=== PATIENT | male | born 1990 | race Hispanic/Latino ===

== ENCOUNTER 2020-06-28 14:48 | Emergency (ER) | payer SELFPAY ==
[2020-06-28 15:28] LABS: Absolute Lymphocytes (CBC) 1.4 K/uL (0.7-4.9); Hematocrit 48.5 % (39.6-49.0); Lymphocytes % 21.9 % (15.3-44.8); RBC Red Blood Cell Count 5.83 M/uL (4.33-5.43)
[2020-06-28 15:44] LABS: Protime INR 1.03
[2020-06-28 15:48] LABS: ALT/SGPT 68 U/L (12-78); AST/SGOT 27 U/L (15-37); Albumin 4.6 g/dL (3.4-5.0); Alkaline Phosphatase 59 U/L (45-117); BUN Blood Urea Nitrogen 11 mg/dL (7-18); Bicarbonate 26 mmol/L (21-32); Bilirubin Direct 0.2 mg/dL (0-0.2); Bilirubin Total 1.2 mg/dL (0.2-1.0); Glucose Level 100 mg/dL (74-106); Magnesium 2.5 mg/dL (1.8-2.4); NT PRO-BNP 27 pg/mL (<125); Potassium 3.7 mmol/L (3.5-5.1); Protein, Total 8.2 g/dL (6.4-8.2); Sodium Level 140 mmol/L (136-145); Troponin (Emerg Dept Use Only) < 0.02 ng/mL (0.0-0.045)
--- NOTE | 2020-06-28 16:23 | EDPHYS ---
Physician Documentation [facility] Name: Vasu Carrillo Age: 29 yrs Sex: Male : 1990 Arrival Date: 06/28/2020 Time: 14:50 Bed 16 Private MD: ED Physician Dino Mejia HPI: 06/28 15:09 This 29 yrs old Male presents to ER via Ambulatory with complaints of Chest jmm Pain. 15:09 The patient or guardian reports chest pain that is located primarily in the anterior [facility] chest wall, midsternal. The pain does not radiate. Associated signs and symptoms: Pertinent negatives: abdominal pain. The chest pain is described as aching. Duration: The patient or guardian reports multiple episodes. Modifying factors: The symptoms are alleviated by nothing. the symptoms are aggravated by nothing. The patient has not experienced similar symptoms in the past. Historical: - Allergies: 14:59 Latex, Natural Rubber; jl7 - Home Meds: 14:59 None [Active]; jl7 - PMHx: 14:59 None; jl7 - PSHx: 14:59 Knee surgery; jl7 - Immunization history:: Adult Immunizations not up to date. - Social history:: Smoking status: Patient denies any tobacco usage or history of. ROS: 15:09 Constitutional: Negative for fever, chills, and weight loss. jmm 15:09 Respiratory: Negative for shortness of breath, cough, wheezing, and pleuritic chest pain, Neuro: Negative for headache, weakness, numbness, tingling, and seizure. 15:09 Cardiovascular: Positive for chest pain. 15:09 All other systems are negative. Exam: 15:07 ECG was reviewed by the Attending Physician. jmm 15:09 Constitutional: This is a well developed, well nourished patient who is awake, alert, jmm and in no acute distress. Head/Face: atraumatic. Eyes: EOMI, no conjunctival erythema appreciated ENT: Moist Mucus Membranes Neck: Trachea midline, Supple Chest/axilla: Normal chest wall appearance and motion. Cardiovascular: Regular rate and rhythm. No edema appreciated Respiratory: Normal respirations, no respiratory distress appreciated Abdomen/GI: Non distended, soft Back: Normal ROM Skin: General appearance color normal MS/ Extremity: Moves all extremities, no obvious deformities appreciated, no edema noted to the lower extremities Neuro: Awake and alert, normal gait Psych: Behavior is normal, Mood is normal, Patient is cooperative and pleasant Vital Signs: 14:57 BP 165 / 105; Pulse 101; Resp 17; Temp 98.2; Pulse Ox 99% ; Weight 104.33 kg; Height 5 7 ft. 6 in. (167.64 cm); Pain 4/10; 15:23 BP 152 / 98; Pulse 102; Resp 21; Pulse Ox 99% ; Pain 4/10; rb3 16:23 BP 144 / 97; Pulse 93; Resp 21; Pulse Ox 99% ; rb3 17:03 BP 137 / 95; Pulse 92; Resp 22; Pulse Ox 98% ; rb3 14:57 Body Mass Index 37.12 (104.33 kg, 167.64 cm) 7 MDM: 14:56 Patient medically screened. [facility] 16:22 Data reviewed: vital signs, nurses notes. Counseling: I had a detailed discussion with carmina the patient and/or guardian regarding: the historical points, exam findings, and any diagnostic results supporting the discharge/admit diagnosis, lab results, radiology results, the need for outpatient follow up, to return to the emergency department if symptoms worsen or persist or if there are any questions or concerns that arise at home. ED course: HEART SCORE = 1. D-DIMER NEGATIVE. 06/28 15:07 Order name: Basic Metabolic Panel; Complete Time: 15:50 [facility] 06/28 15:07 Order name: CBC with Diff; Complete Time: 15:41 [facility] 06/28 15:07 Order name: LFT's; Complete Time: 15:50 [facility] 06/28 15:07 Order name: Magnesium; Complete Time: 15:50 [facility] 06/28 15:07 Order name: NT PRO-BNP; Complete Time: 15:50 [facility] 06/28 15:07 Order name: PT-INR; Complete Time: 15:50 [facility] 06/28 15:07 Order name: Troponin (emerg Dept Use Only); Complete Time: 15:50 [facility] 06/28 15:07 Order name: XRAY Chest (1 view); Complete Time: 16:42 [facility] 06/28 15:07 Order name: EKG; Complete Time: 15:08 [facility] 06/28 15:07 Order name: Cardiac monitoring; Complete Time: 15:18 [facility] 06/28 15:07 Order name: EKG - Nurse/Tech; Complete Time: 15:18 [facility] 06/28 15:07 Order name: IV Saline Lock; Complete Time: : [facility] 06/28 15:07 Order name: Labs collected and sent; Complete Time: 15: [facility] 06/28 15:07 Order name: D-Dimer; Complete Time: 15:50 [facility] 06/28 15:07 Order name: O2 Per Protocol; Complete Time: : [facility] 06/28 15:07 Order name: O2 Sat Monitoring; Complete Time: 15:18 jm EC: Rate is 106 beats/min. Rhythm is regular. QRS [place] is Normal. NH interval is normal. [facility] QRS interval is normal. QT interval is normal. No Q waves. T waves are Normal. No ST changes noted. Reviewed by me. Administered Medications: No medications were administered Disposition: 17:41 Co-signature as Attending Physician, Dino Mejia MD. rn Disposition: 06/28/20 16:23 Discharged to Home. Impression: Chest pain, unspecified. - Condition is Stable. - Discharge Instructions: Nonspecific Chest Pain. - Prescriptions for orphenadrine citrate 100 mg Oral Tablet Sustained Release - take 1 tablet by ORAL route 2 times per day As needed; 20 tablet. Medrol (Sergio) 4 mg Oral Tablets, Dose Pack - take 1 tablet by ORAL route as directed - follow package instructions; 1 packet. - Medication Reconciliation Form, Thank You Letter, Antibiotic Education, Prescription Opioid Use form. - Follow up: Private Physician; When: 2 - 3 days; Reason: Recheck today's complaints, Continuance of care, Re-evaluation by your physician. Signatures: Dispatcher [employer] EDMS Sarath Garcia PA PA Dino Schafer MD MD rn Leal, Jahala, RN RN jl7 Marissa Bacon, RN RN rb3 Corrections: (The following items were deleted from the chart) 17:05 16:23 06/28/2020 16:23 Discharged to Home. Impression: Chest pain, unspecified. rb3 Condition is Stable. Forms are Medication Reconciliation Form, Thank You Letter, Antibiotic Education, Prescription Opioid Use. Follow up: Private Physician; When: 2 - 3 days; Reason: Recheck today's complaints, Continuance of care, Re-evaluation by your physician. [email or web address]
--- NOTE | 2020-06-28 16:23 | ER ---
Nurse's Notes [facility] Name: Vasu Carrillo Age: 29 yrs Sex: Male : 1990 Arrival Date: 06/28/2020 Time: 14:50 Bed 16 Private MD: Diagnosis: Chest pain, unspecified Presentation: 06/28 14:57 Chief complaint: Patient states: Mid-sternal chest pain, non-radiating, x 2 days, jl7 described as achy. Coronavirus screen: Client denies travel out of the [place] in the last 14 days. At this time, the client does not indicate any symptoms associated with coronavirus-19. Ebola Screen: No symptoms or risks identified at this time. Initial Sepsis Screen: Does the patient meet any 2 criteria? No. Patient's initial sepsis screen is negative. Does the patient have a suspected source of infection? No. Patient's initial sepsis screen is negative. Risk Assessment: Do you want to hurt yourself or someone else? Patient reports no desire to harm self or others. Onset of symptoms was June 26, 2020. Care prior to arrival: None. Transition of care: patient was not received from another setting of care. 14:57 Method Of Arrival: Ambulatory [facility] 14:57 Acuity: JOVANNA 2 jl7 Triage Assessment: 14:59 General: Appears in no apparent distress. uncomfortable, Behavior is calm, cooperative, jl7 appropriate for age. Pain: Complains of pain in mid-sternal area Pain does not radiate. Pain currently is 4 out of 10 on a pain scale. Quality of pain is described as aching, Pain began 2-3 days ago. Is continuous. Cardiovascular: Patient's skin is warm and dry. Historical: - Allergies: 14:59 Latex, Natural Rubber; jl7 - Home Meds: 14:59 None [Active]; jl7 - PMHx: 14:59 None; jl7 - PSHx: 14:59 Knee surgery; jl7 - Immunization history:: Adult Immunizations not up to date. - Social history:: Smoking status: Patient denies any tobacco usage or history of. Screenin:59 Abuse screen: Denies threats or abuse. Nutritional screening: No deficits noted. rb3 Tuberculosis screening: No symptoms or risk factors identified. Fall Risk None identified. Assessment: 14:59 General: Appears in no apparent distress. comfortable, Behavior is calm, cooperative. rb3 Pain: Complains of pain in mid-sternal area Pain does not radiate. Pain currently is 4 out of 10 on a pain scale. Pain began x 2 days. Neuro: Level of Consciousness is awake, alert, obeys commands, Oriented to person, place, time, situation. Cardiovascular: Rhythm is sinus tachycardia. Respiratory: Airway is patent Respiratory effort is even, unlabored, Respiratory pattern is regular, symmetrical. GI: No signs and/or symptoms were reported involving the gastrointestinal system. : No signs and/or symptoms were reported regarding the genitourinary system. Derm: Skin is pink, warm \T\ dry. 15:43 Reassessment: Patient appears in no apparent distress at this time. No changes from rb3 previously documented assessment. 16:40 Reassessment: Patient appears in no apparent distress at this time. Patient and/or rb3 family updated on plan of care and expected duration. Pain level reassessed. Patient is alert, oriented x 3, equal unlabored respirations, skin warm/dry/pink. Vital Signs: 14:57 BP 165 / 105; Pulse 101; Resp 17; Temp 98.2; Pulse Ox 99% ; Weight 104.33 kg; Height 5 jl7 ft. 6 in. (167.64 cm); Pain 4/10; 15:23 BP 152 / 98; Pulse 102; Resp 21; Pulse Ox 99% ; Pain 4/10; rb3 16:23 BP 144 / 97; Pulse 93; Resp 21; Pulse Ox 99% ; rb3 17:03 BP 137 / 95; Pulse 92; Resp 22; Pulse Ox 98% ; rb3 14:57 Body Mass Index 37.12 (104.33 kg, 167.64 cm) jl7 ED Course: 14:50 Patient arrived in ED. ag5 14:50 Sarath Garcia PA is PHCP. [facility] 14:50 Dino Mejia MD is Attending Physician. [facility] 14:57 Marissa Bacon, ANIKA is Primary Nurse. rb3 14:59 Triage completed. jl7 14:59 Arm band placed on right wrist. jl7 14:59 Patient has correct armband on for positive identification. Bed in low position. Call rb3 light in reach. Side rails up X 1. shop superintendent on. Pulse ox on. NIBP on. 14:59 Patient maintains SpO2 saturation greater than 95% on room air. rb3 15:15 Initial lab(s) drawn, by me, sent to lab. jb1 15:42 XRAY Chest (1 view) In Process Unspecified. EDMS 15:44 Inserted saline lock: 22 gauge in left antecubital area, using aseptic technique. Blood jb1 collected. 17:04 No provider procedures requiring assistance completed. IV discontinued, intact, rb3 bleeding controlled, No redness/swelling at site. Pressure dressing applied. Administered Medications: No medications were administered Outcome: 16:23 Discharge ordered by . carmina 17:04 Discharged to home ambulatory. rb3 17:04 Condition: stable 17:04 Discharge instructions given to patient, Instructed on discharge instructions, follow up and referral plans. medication usage, Demonstrated understanding of instructions, follow-up care, medications, Prescriptions given X 2. 17:05 Patient left the ED. rb3 Signatures: Dispatcher [employer] EDMS Herminio Velez jb1 Sarath Garcia PA PA jmm Leal, Jahala, RN RN jl7 Fer Jane ag5 Marissa Bacon, RN RN rb3
--- NOTE | 2020-06-28 16:41 | RAD REPORT ---
EXAM DESCRIPTION: RAD - Chest Single View - 06/28/2020 3:42 pm CLINICAL HISTORY: CHEST PAIN COMPARISON: None TECHNIQUE: AP portable chest image was obtained 06/28/2020 3:42 pm . FINDINGS: Lungs are clear. Heart and vasculature are normal. No measurable pleural effusion and no p neumothorax. No acute bony abnormality seen. No acute aortic findings suspected. IMPRESSION: No acute cardiopulmonary process.
[2020-06-28 17:09] VITALS: TEMP 98.2
[2020-06-28 17:13] VITALS: BP 137/95; O2SAT 98
--- NOTE | 2020-06-29 07:25 | EKG ---
Test Date: 2020-06-28 Test Time: 15:04:44 Obgyn Nurse: DORIS MEASUREMENT RESULTS: Intervals: Rate: 106 TX: 152 QRSD: 102 QT: 342 QTc: 454 [place]: P: 29 TX: 152 QRS: 82 T: 2 INTERPRETIVE STATEMENTS: Sinus tachycardia Otherwise normal ECG Compared to ECG 09/28/2003 20:58:00 Sinus rhythm no longer present Electronically Signed On 06-29-20 07:24:03 RESEARCH INSTRUCTOR by Sabas Matthews
== END 2020-06-28 17:05 | disposition home or self-care (01) ==
LOC: ER 14:48
DX: R07.9 Chest pain, unspecified (principal)
CPT/HCPCS: 36415; 71045; 80048; 80076; 83735; 83880; 84484; 85025; 85379; 85610; 93005; 99285